=== PATIENT | male | born 1935 | race Caucasian/White ===

== ENCOUNTER → 2018-12-11 10:49 | Outpatient (CLI) | payer MEDICARE, SELFPAY ==
[2018-12-11 11:20] LABS: Prothrombin Time (Protime)PT. 49.7 SECONDS (11.7-14.9)
[2018-12-11 11:51] LABS: International Normalized Ratio 5.4
== END ==
PROVIDERS: Referring Provider Family Medicine; Visit Provider Family Medicine
DX: I48.3 Typical atrial flutter (principal)
CPT/HCPCS: 85610